=== PATIENT | male | born 1960 | race Two or more races ===

== ENCOUNTER 2016-09-10 12:34 | Emergency (ER) | payer OTHER ==
--- NOTE | ~2016-09-10 | CR126 ---
[facility] A Service of [facility] & [facility] RADIOLOGY TEXT RESULTS PATIENT: MARGOT LAIRD LOCATION: SED : 64 UNIT #: [id number] AGE: [address]: Donald Chicas MD SEX: M ORDER DR: [id number] [place] [id number] E MR#: [id number] Acc #: [id number] NAME: MARGOT LAIRD : 1960 SEX: M STUDY DATE/TIME: UNIT: SED ROOM: STUDY DESCRIPTION: CR Foot Complete Min 3 View Lt Attending Physician: Donald Chicas M.D. Ordering Physician: Donald Chicas M.D. Primary Care Physician: No Primary Care Physician MEDICAL IMAGING REPORT This report is preliminary unless electronic signature is present. EXAM Left foot 3 views 09/10/2016 1229 hours CLINICAL HISTORY 56-year-old man suffered laceration to top of left fourth toe with saw today 30 minutes prior to admission. Toe pain. COMPARISON None. FINDINGS AP, lateral and oblique views demonstrate normal bone density. There is no fracture, dislocation, or foreign body. IMPRESSION Negative left foot. No fracture, dislocation, or foreign body seen. Dictated by... Rina Chavis M.D. THIS IS AN ELECTRONICALLY VERIFIED REPORT Rina Chavis M.D. at 09/10/2016 2:30 PM GATO/treva TD: 09/10/2016 13:37 JOB #: [id number] MEDICAL IMAGING REPORT Page 1 of 1
== END 2016-09-10 13:27 | disposition home or self-care (01) ==
LOC: SED 12:34
DX: S91.115A Laceration without foreign body of left lesser toe(s) without damage to nail, initial encounter (principal); Z23 Encounter for immunization; F17.200 Nicotine dependence, unspecified, uncomplicated; W27.0XXA Contact with workbench tool, initial encounter; Y93.89 Activity, other specified; Y92.69 Other specified industrial and construction area as the place of occurrence of the external cause; Y99.0 Civilian activity done for income or pay
CPT/HCPCS: 12001; 73630; 90471; 90715; 99283; 99284

== ENCOUNTER 2016-09-20 11:41 | Emergency (ER) | payer OTHER | END 2016-09-20 12:10 | disposition home or self-care (01) | LOC: SED 11:41 | DX: L03.032 Cellulitis of left toe (principal); F17.210 Nicotine dependence, cigarettes, uncomplicated | CPT/HCPCS: 99282 ==